=== PATIENT | female | born 1950 | race African-American/Black ===

== ENCOUNTER → 2017-04-28 | Outpatient (CLI) | payer OTHER ==
--- NOTE | ~2017-04-28 | SLE ---
[facility] [address] [place] [address] POLYSOMNOGRAPHY STUDY Name: SHERIF GANT Room #: REG AGUSTÍN Masters.#: [id number] Admission: 04/28/17 Attend Phys: Yossi Hernandez MD Discharge: Date of : 54 Report #: [id number] THIS REPORT FOR: //name// CC: FAM unknown Yossi Hernandez This is a 66-year-old 5 feet 10 inches, weight 308 pounds. Usually goes bed 11:00 p.m. Describes herself as a restless sleeper. Positive daytime somnolence. COMMENTS: SLEEP SUMMARY: Total sleep time 318.5 minutes, sleep efficiency 76%. Sleep latency 7 minutes, REM latency 110 minutes. SLEEP STAGE: 1 -- 37%, 2-- 55%, REM -- 8%. RESPIRATORY SUMMARY: Central apnea 0, mixed apnea 0, obstructive apnea 1, hypopnea 34. Respiratory effort related arousal 1. Apnea-hypopnea index is 6.6 events per recording hour. Non-REM AHI 4.5, REM AHI 30. Respiratory effort related arousal 0.2 events per sleep hour. All sleep was in the supine position. Periodic limb movement with arousal index of 4.9 events per sleep hour. 47% of time in snoring. Low oxygen saturation 78%, spending 3% of recording time less than 90%. IMPRESSION: 1. Obstructive sleep, apnea/hypopnea, G47.33. 2. Periodic limb movement with arousal index of 4.9 events per sleep hour. 3. No significant arrhythmia noted. SUGGESTIONS: 1. In addition to specific therapy, the patient should be cautioned regarding driving or operating dangerous machinery unless fully alert. The patient should be cautioned regarding the use of respiratory depressants. 2. Weight loss and TSH is recommended. 3. Oral appliance or appropriate surgery may be considered with appropriate followup. 4. A CPAP titration night or a home auto-titrating CPAP may be considered depending on the patient's home and clinical situation. 5. If signs and symptoms not improved with therapy, further evaluation is [facility] [address] [place] [address] POLYSOMNOGRAPHY STUDY Name: SHERIF GANT Room #: REG Evelyn Masters.#: [id number] Admission: 04/28/17 Attend Phys: Yossi Hernandez MD Discharge: Date of : 54 Report #: [id number] recommended. Please do not hesitate to contact me if I may be of further assistance. <ELECTRONICALLY SIGNED> By: Saumya Savage MD 05/17/17 [id number] Saumya Savage MD /nt
== END ==
LOC: SPEECH 21:11
DX: G47.33 Obstructive sleep apnea (adult) (pediatric) (principal)